=== PATIENT | male | born 1995 | race African-American/Black ===

== ENCOUNTER 2025-04-19 15:35 | Emergency (ER) | payer OTHER, SELFPAY ==
[2025-04-19 15:46] VITALS: BP 109/61; PULSE 55; RESP 18; TEMP 36.6; O2SAT 98; BMI 22.8
--- NOTE | 2025-04-19 15:50 | ED_ITS ---
HPI - General Adult General Chief complaint: General Medical Stated complaint: R Lump in Armpit, Painful, hard Time Seen by Provider: 04/19/25 18:13 Source: patient Limitations: no limitations History of Present Illness ED Provider: Uma Ariza PA-C HPI narrative: 29-year-old male presents with abscess to right axilla x 2-3 days. Associated redness, warmth, swelling, the lesions started to drain today. Denies fever. Patient has a 2nd lesion along right lateral chest wall, it has become tender over the past day, overlying redness. Related Data Previous Rx's ?Medication ?Instructions ?Recorded doxycycline hyclate 100 mg capsule 100 mg PO BID #13 c aps 04/19/25 Allergies Allergy/AdvReac Type Severity Reaction Status Date / Time No Known Allergies Allergy Verified 04/19/25 15:48 Review of Systems 2 Review of Systems: Yes all other systems are reviewed and are negative Constitutional: Constitutional: Denies fatigue and Denies fever(s) Cardiovascular: Cardiovascular: Denies chest pain and Denies dyspnea Respiratory: Respiratory: Denies dyspnea Gastrointestinal: Gastrointestinal: Denies abdominal pain and Denies constipation Integumentary/Breasts: Skin/Breast: Reports furuncle and Reports skin swelling Endocrine: Endocrine: Denies fatigue PMFSH Past Medical History Attestation statement: The following information was validated with the patient. Physical Exam ED Vital Signs: Vital Signs - 24 hr 04/19/25 15:46 Temperature 98 F Pulse Rate 55 Respiratory Rate 18 Blood Pressure 109/61 Pulse Oximetry 98 BMI result Body Mass Index 22.8 Const Other: Alert well-appearing Orientation/consciousness: patient oriented x3 Chest Other: Erythematous indurated tender swelling along right lateral chest wall, no central fluctuance no active drainage Resp Effort & Inspection: normal respiratory effort Cardio Other: Normal peripheral perfusion Skin Other: Warm dry no rash. Abscess located in right axilla, overlying erythema, the region is indurated, actively draining purulence. Neuro General: patient oriented x3, gait normal, no focal motor deficits and CN's II- XI intact bilaterally Psych Other: Cooperative Course Course Course Narrative: This is a Rapid Medical Examination (RME) performed by Halley Coates PA-C in triage. Full HPI, ROS, assessment and treatment plan per primary provider in the Main ED. Hx: 29 yo M here w/ concerns of abscess to R axilla. no drainage. no fevers. Plan: basic labs, I&D Medications Administered Discontinued Medications Generic Name Dose Route Start Last Admin Trade Name Saravanan PRN Reason Stop Dose Admin Lidocaine/Epinephrine 10 ml 04/19/25 18:14 04/19/25 18:59 Lidocaine Hcl 1%/Epi 1:100,000 10 Ml Vial INFILTRATI 04/19/25 18:15 10 ml ONCE ONE Administration Procedures Abscess I/D Site: chest (Right lateral chest wall) and other (Axilla) Side (if applicable): right Sedation/analgesia: none Local Anesthetic: lidocaine 1% and with epi Amount of anesthesia used (mL): 6 (Use 3 cc of lidocaine with epinephrine to numb the chest wall abscess) Technique: incised with blade and ultrasound guided Amount of fluid expressed (mL): 5 (1 cc of purulence from chest wall abscess) Sent for culture/gram staining?: No Irrigation: Yes Packing used?: none (No packing use with the chest wall abscess, it was assessed that was infected) and iodoform Medical Decision Making Medical Decision Making MDM Narrative: 29-year-old male presents with abscess to right axilla x 2-3 days. Associated redness, warmth, swelling, the lesions started to drain today. Denies fever. Patient has a 2nd lesion along right lateral chest wall, it has become tender over the past day, overlying redness. No chronic issues History: Per patient I have considered the following differential diagnoses: Infective cyst, abscess, cellulitis, purulent cellulitis, folliculitis Plan: We will I and D the axilla abscess, we will I and D the cyst. I have viewed both sites with bedside ultrasound to determine depth and size of the infections. We will place on doxycycline, no indication for imaging. We will send the patient with a contact for a surgical service to discuss elective removal of the cyst along the chest wall. Lab Data 04/19/25 16:08 04/19/25 16:08 Labs: Lab Results 04/19/25 Range/Units 16:08 WBC 6.4 (4.8-10.8) X10*3/uL RBC 4.39 L (4.60-5.80) X10*6/uL Hgb 12.6 L (14.0-18.0) g/dl Hct 37.5 L (42.0-52.0) % MCV 85.4 (80.0-98.0) fL MCH 28.7 (27.0-33.0) pg MCHC 33.6 (31.0-36.0) g/dl RDW 11.7 (11.0-16.0) % Plt Count 179 (160-400) X10*3/uL MPV 10.8 (9.4-12.4) fL Immature Gran % (Auto) 0.3 (0.0-0.4) % Neut % (Auto) 65.2 (45-73) % Lymph % (Auto) 23.5 (20-40) % [place] % (Auto) 8.7 (2-11) % Eos % (Auto) 1.7 (0-4) % Baso % (Auto) 0.6 (0-2) % Lymph # (Auto) 1.5 (1.2-4.9) X10*3/uL [place] # (Auto) 0.6 (0.1-1.2) X10*3/uL Eos # (Auto) 0.1 (0.0-0.4) X10*3/uL Baso # (Auto) 0.0 (0.0-0.2) X10*3/uL Abs Immat Gran (auto) 0.02 (0.00-0.03) X10*3/uL Absolute Neuts (auto) 4.2 (2.0-8.3) x10*3/uL Absolute Nucleated RBC 0.000 (0.0-0.012) X10*3/uL Nucleated RBC % (auto) 0.0 (0.0-0.2) /100WBC Sodium 140 (135-145) mmol/L Potassium 4.2 (3.3-5.1) mmol/L Chloride 107 (96-108) mmol/L Carbon Dioxide 27 (22-29) mmol/L Anion Gap 10 L (12-20) BUN 19 H (9-16) mg/dL Creatinine 1.27 (0.5-1.4) mg/dL Estim Creat Clear Calc 82.5 Estimated GFR > 60 Random Glucose 88 (60-115) mg/dL Calcium 8.9 (8.4-10.2) mg/dL Total Bilirubin 0.5 (0.0-1.0) mg/dL AST 25 (5-37) U/L ALT 24 (0-40) U/L Alkaline Phosphatase 54 (39-117) U/L Total Protein 7.4 (6.5-8.0) g/dL Albumin 4.3 (3.5-5.0) g/dL Discharge Plan Discharge Clinical Impression: Abscess of axilla, right, Infected cyst of skin Patient Disposition: Home, Self-Care Instructions: Abscess Incision and Drainage (DC), Incision and Drainage (ED) Additional Instructions: You had an abscess in your right armpit that was drained. See home care instructions. You can remove the packing in 2 days. While in the shower, allow hot water to run over the site, then abruptly remove the drain. In regard to the lesion on your right chest wall, this was an infected cyst. It will likely re-accumulate. I am providing you with a contact for our surgical service, you can make an appointment to discuss the elective removal of the cyst. Take the doxycycline as directed. Follow up with primary care as needed. Prescriptions: New doxycycline hyclate 100 mg capsule 100 mg PO BID Qty: 13 0RF Referrals: Verónica Solorzano MD [Physician, General Surgery] Referral Note: right chest wall cyst Print Language: Tamazight
[2025-04-19 16:15] LABS: MANUAL DIFF FLAG NO
[2025-04-19 16:21] LABS: Hematocrit 37.5 % (42.0-52.0); Hemoglobin 12.6 g/dl (14.0-18.0); Imm Gran Abs Auto 0.02 X10*3/uL (0.00-0.03); Imm Gran Pct Auto 0.3 % (0.0-0.4); Lymphocytes Absolute Auto 1.5 X10*3/uL (1.2-4.9); Mean Corpuscular HGB Conc 33.6 g/dl (31.0-36.0); Mean Corpuscular Hemoglobin 28.7 pg (27.0-33.0); Mean Corpuscular Volume 85.4 fL (80.0-98.0); NRBC Abs Auto 0.000 X10*3/uL (0.0-0.012); NRBC Pct Auto 0.0 /100WBC (0.0-0.2); Platelet Count 179 X10*3/uL (160-400); Red Blood Count 4.39 X10*6/uL (4.60-5.80); White Blood Count 6.4 X10*3/uL (4.8-10.8)
[2025-04-19 16:31] LABS: Alanine Aminotransferase 24 U/L (0-40); Albumin Level 4.3 g/dL (3.5-5.0); Alkaline Phosphatase 54 U/L (39-117); Anion Gap 10 (12-20); Aspartate Amino Transferase 25 U/L (5-37); Blood Urea Nitrogen 19 mg/dL (9-16); Calcium 8.9 mg/dL (8.4-10.2); Carbon Dioxide 27 mmol/L (22-29); Chloride 107 mmol/L (96-108); Creatinine Clr Calc Pharmacy 82.5; Estimated Glomerular Filt Rate > 60; Potassium 4.2 mmol/L (3.3-5.1); Sodium 140 mmol/L (135-145); Total Protein 7.4 g/dL (6.5-8.0)
[2025-04-19] MEDS: Lidocaine HCl 1%/Epi 1:100,000 10 ML VIAL INFILTRATI (18:59)
[2025-04-19 20:02] VITALS: BP 121/74; PULSE 60; RESP 20; TEMP 37; O2SAT 99
[2025-04-19 20:17] VITALS: BP 121/74; PULSE 60; RESP 20; TEMP 37; O2SAT 99
== END 2025-04-19 20:18 | disposition home or self-care (01) ==
PROVIDERS: Physician Assistant Medical; Emergency Provider Emergency Medicine
DX: L02.411 Cutaneous abscess of right axilla (principal)
CPT/HCPCS: 10060; 36415; 80053; 85025; 99283; 99284; J2004

== ENCOUNTER 2025-08-17 17:26 | Emergency (ER) | payer OTHER, SELFPAY ==
--- NOTE | 2025-08-17 17:31 | ED_ITS ---
HPI - General Adult General Chief complaint: Dental/Oral Stated complaint: LIP SWELLING Time Seen by Provider: 08/17/25 17:36 Source: patient, RN notes reviewed and old records reviewed Mode of arrival: ambulatory Limitations: no limitations History of Present Illness ED Provider: Nanda [facility] narrative: Patient is a 29-year-old male presenting to the emergency department with a complaint of left upper lip pain, swelling since Friday. Reports purulent drainage today from outer lip. Difficulty eating due to the pain/swelling. Denies any dental pain. Denies fevers or difficulty swallowing. MD complaint: lip swelling Onset (ago): day(s) Related Data Previous Rx's ?Medication ?Instructions ?Recorded doxycycline hyclate 100 mg capsule 100 mg PO BID #13 c aps 04/19/25 clindamycin HCl 150 mg capsule 450 mg (3 x 150 mg) PO TID 7 days 08/17/25 (Cleocin HCl) #63 caps Allergies Allergy/AdvReac Type Severity Reaction Status Date / Time No Known Allergies Allergy Verified 08/17/25 17:35 Review of Systems 2 Review of Systems: as per hpi Yes all other systems are reviewed and are negative Constitutional: Constitutional: Reports as per HPI [facility] Social History Social History Advance Directives: No Advance Directives Information Provided: Yes Physical Exam ED Vital Signs: Vital Signs - 24 hr 08/17/25 17:32 Temperature 98.6 F Pulse Rate 60 Respiratory Rate 16 Blood Pressure 139/72 Pulse Oximetry 99 Oxygen Delivery Method Room Air BMI result Body Mass Index 22.7 Vital signs have been reviewed and appear to be correct. Blood pressure normal. Heart rate normal. Respiratory rate normal. Temperature normal. Oxygen saturation normal. Const General: cooperative, healthy appearing and no acute distress Orientation/consciousness: oriented to person, oriented to place, oriented to time and patient oriented x3 Limitations: no limitations HENMT Head: Yes normocephalic and Yes atraumatic Ears: external ears normal General nose exam: Normal external nose present Face and sinus: Yes face symmetric Mouth: oropharynx normal and moist mucous membranes Mouth/tongue images: 2 1. swelling and induration without fluctuance 2. pustule Throat: Yes uvula midline Eyes Pupils: Equal, round and reactive pupils present Neck Neck: Yes normal visual inspection and Yes supple Resp Effort & Inspection: normal respiratory effort and able to speak in complete sentences Auscultation: clear to auscultation bilaterally Cardio Rate: regular rate Rhythm: regular rhythm Heart sounds: S1 normal heart sound present and S2 normal heart sound present GI Palpation (GI): Soft to palpation and nontender Auscultation: normoactive bowel sounds General: Yes no CVA tenderness Back/Spine/Pelvis Back: no CVA tenderness Skin General skin exam: elasticity normal and turgor normal Neuro General: oriented to person, oriented to place, oriented to time, patient oriented x3, moves all extremities, no focal motor deficits and CN's II-XI intact bilaterally Cranial nerves: Yes Equal, round and reactive pupils present Cognition (Neuro): normal cognition Extrem General: Yes full ROM, Yes no pedal edema and Yes no calf tenderness Psych Mental Status: mental status grossly normal Affect: normal affect Thought process: Normal thought process present Medical Decision Making Medical Decision Making [facility] Narrative: Patient is a 29-year-old male presenting to the emergency department with a complaint of left upper lip pain, swelling since Friday. On exam patient is awake, A+Ox3, VS WNL, afebrile, normal neurological exam without focal deficits, physical exam findings as above. Given reported symptoms and physical exam findings, initial differential includes but is not limited to Folliculitis, abscess, cellulitis lip. will treat with course of clindamycin to cover both external and buccal sources. Discussed with patient that he should also be taking a probiotic while on this medication but not at the same time as the antibiotics. Return precautions discussed. Follow up with PCP as needed. Patient verbalized understanding of and agreement with plan. Differential Diagnosis Differential Diagnoses: The differential diagnosis associated with the presentation includes As per MDM Admission/Observation Consideration of admission/observation: Escalation of care including admission/observation considered Patient would have been admitted to the hospital and transferred to appropriate facility had their clinical presentation warranted hospital admission. External Record Review External record reviewed: Inpatient record, Office record and Outpatient record Prescription Management I considered prescription management with: Antibiotic Discharge Plan Discharge Clinical Impression: Cellulitis of skin of lip Patient Disposition: Home, Self-Care Additional Instructions: Your Diagnosis You have been diagnosed with cellulitis of your upper lip. Cellulitis is a bacterial skin infection that causes redness, swelling, warmth, and pain in the affected area. Your Antibiotic: Clindamycin You have been prescribed clindamycin to treat this infection. Take this medication exactly as directed, even if you start feeling better before finishing all the pills.[1-2]?Stopping the antibiotic early can make the infection come back or make bacteria harder to treat in the future.[6] How to Take Clindamycin: * Take your medication with a full glass of water (6-8 ounces) * Wait at least 30 minutes before lying down after taking each dose[6] * Continue taking the medication for the full course prescribed, typically 5 days[1] Important Warning About Diarrhea Clindamycin can sometimes cause diarrhea.?Call your doctor right away?if you develop watery or bloody stools, stomach cramps, or fever?even if this happens up to 2 months after finishing the antibiotic. This could be a sign of a serious intestinal infection.[6] Probiotic Recommendation: Saccharomyces Boulardii To help prevent antibiotic-associated diarrhea, you are recommended to take Saccharomyces boulardii (a probiotic yeast) while taking clindamycin. This probiotic has been shown to reduce the risk of diarrhea caused by antibiotics and is safe to take alongside clindamycin because it is naturally resistant to antibiotics.[3-5] What to Watch For Your infection should start improving within 24-48 hours of starting the antibiotic. You should notice:[2] * Less pain * Less redness * Less swelling * Less warmth When to Seek Medical Attention Contact your doctor or return to the emergency department if: * Your symptoms get worse or don't improve within 48 hours * You develop a fever * The redness spreads * You develop severe diarrhea or bloody stools * You have difficulty breathing or swallowing * You develop a rash or other signs of an allergic reaction Additional Care Instructions * Keep the affected area elevated when possible to reduce swelling[1] * Avoid touching or picking at the infected area * Wash your hands frequently * Complete the full course of antibiotics as prescribed Prescriptions: New clindamycin HCl [Cleocin HCl] 150 mg capsule 450 mg PO TID 7 Days Qty: 63 0RF No Action doxycycline hyclate 100 mg capsule 100 mg PO BID Qty: 13 0RF Discharge Date/Time: 08/17/25 17:49 Print Language: Cambodian
[2025-08-17 17:32] VITALS: BP 139/72; PULSE 60; RESP 16; TEMP 37; O2SAT 99; BMI 22.7
== END 2025-08-17 17:49 | disposition home or self-care (01) ==
PROVIDERS: Emergency Provider Student in an Organized Health Care Education/Training Program
DX: K13.0 Diseases of lips (principal); R68.84 Jaw pain
CPT/HCPCS: 99281; 99283